=== PATIENT | female | born 1980 ===

== ENCOUNTER 2020-07-28 14:01 | Inpatient (IN) | payer MEDICARE, MEDICAID ==
[~2020-07-28] VITALS: Ht 175.3 cm; Wt 150.4 kg
[2020-07-28] MEDS ORDERED: PANTOPRAZOLE 40 MG/10 ML VIAL INJ IV STA (15:12)
[2020-07-28] MEDS ORDERED: ONDANSETRON HCL 4 MG/2 ML VIAL IV ONE (15:15)
[2020-07-28] MEDS ORDERED: MORPHINE SULFATE 4 MG/ML SYR/VIAL IV ONE (15:15)
[2020-07-28 16:42] LABS: Urine WBC None Seen /hpf (0 - 5)
[2020-07-28 16:52] LABS: Basophils # (auto) 0.1 10 ^3/uL (0-0.2); Basophils % (auto) 0.8 % (0.0-2.0); Eosinophils # (auto) 0.1 10 ^3/uL (0-0.8); Eosinophils % (auto) 0.6 % (0.0-7.0); Hematocrit 40.8 % (36.0-46.0); Hemoglobin 13.9 g/dL (12.2-16.2); Lymphocytes # (auto) 2.1 10 ^3/uL (0.4-5.4); Lymphocytes % (auto) 20.5 % (10.0-50.0); Mean Corpuscular Hemoglobin 29.2 pg (28.0-32.0); Mean Corpuscular Hgb Conc. 34.1 g/dL (32.0-36.0); Mean Corpuscular Volume 85.4 fL (80.0-100.0); Monocytes # (auto) 0.7 10 ^3/uL (0-1.3); Monocytes % (auto) 7.4 % (0.0-12.0); Neutrophils # (auto) 7.1 10 ^3/uL (1.6-8.6); Neutrophils % (auto) 70.7 % (37.0-80.0); Nucleated Red Blood Cells % 0.1 %; Red Blood Cells 4.78 10^6/uL (4.0-5.20); Red Cell Distribution Width 14.1 % (11.8-14.3); White Blood Cell 10.1 10^3/uL (4.4-10.8)
[2020-07-28 16:57] LABS: Urine Bacteria NONE SEEN /hpf (None Seen); Urine Blood Negative /uL (Negative); Urine Specific Gravity 1.004 (1.001-1.035)
[2020-07-28 17:05] LABS: Albumin 3.3 g/dL (3.4-5.0); Calcium 8.6 mg/dL (8.5-10.1)
[2020-07-28 17:30] LABS: Bilirubin, Total 0.2 mg/dL (0.2-1.0); Total Protein 6.6 g/dL (6.4-8.2)
[2020-07-28] MEDS ORDERED: ACETAMINOPHEN 325 MG TAB PO PRN (18:45)
[2020-07-28] MEDS ORDERED: NITROGLYCERIN 0.4 MG SL TAB SL PRN (18:45)
[2020-07-28] MEDS ORDERED: MORPHINE SULF INJ 2 MG/ML SYRINGE 1ML IV PRN (18:45)
[2020-07-28] MEDS ORDERED: ONDANSETRON HCL 4 MG/2 ML VIAL IV PRN (18:45)
[2020-07-28 19:50] VITALS: BP 108/67
[2020-07-28 20:20] VITALS: BP 108/67
[2020-07-28] MEDS: MORPHINE SULF INJ 2 MG/ML SYRINGE 1ML IV PRN (21:26)
[2020-07-28 22:00] VITALS: BP 108/67
[2020-07-28 22:49] VITALS: BP 108/67
[2020-07-28] MEDS ORDERED: ACET-1156 PO (22:49)
[2020-07-28] MEDS ORDERED: TOPI100T68 PO (22:49)
[2020-07-28] MEDS ORDERED: GABA300C10 PO (22:49)
[2020-07-28] MEDS ORDERED: ZONI100C43 PO (22:49)
[2020-07-28] MEDS ORDERED: NAP500T PO (22:49)
[2020-07-28] MEDS ORDERED: ASCO-22 PO (22:49)
[2020-07-28] MEDS ORDERED: DIVA500T4 PO (22:49)
[2020-07-28] MEDS ORDERED: EPIN0.1I11 IJ (22:49)
[2020-07-28] MEDS ORDERED: APIX5TAB PO (22:49)
[2020-07-28] MEDS ORDERED: SENN-177 PO (22:49)
[2020-07-28] MEDS ORDERED: OLAN1TAB19 PO (22:49)
[2020-07-28] MEDS ORDERED: DIVA250T PO (22:49)
[2020-07-29 05:00] VITALS: BP 95/61
[2020-07-29] MEDS: PANTOPRAZOLE 40 MG TAB PO SCH (08:55)
[2020-07-29] MEDS: MORPHINE SULF INJ 2 MG/ML SYRINGE 1ML IV PRN ×2 (08:56→22:22)
[2020-07-29 09:00] VITALS: BP 100/58
[2020-07-29] MEDS ORDERED: ENOXAPARIN SOD 40 MG/0.4 ML SYRINGE SC SCH (10:00)
[2020-07-29] MEDS ORDERED: SENNA 8.6 MG TAB PO PRN (12:15)
[2020-07-29 12:56] VITALS: BP 123/71
[2020-07-29] MEDS: GABAPENTIN 300 MG CAP PO SCH ×2 (13:30→22:14)
[2020-07-29 17:00] VITALS: BP 112/67
[2020-07-29] MEDS ORDERED: LORazepam 2MG/ML-1ML VIAL IV PRN (20:15)
[2020-07-29 22:00] VITALS: BP 106/72
[2020-07-29] MEDS: ZONISAMIDE 100 MG PO SCH (22:00)
[2020-07-29] MEDS: APIXABAN 5 MG TAB PO SCH (22:13)
[2020-07-29] MEDS: OLANZapine 5 MG TAB PO SCH (22:14)
[2020-07-29] MEDS: TOPIRAMATE 100 MG TAB PO SCH (22:14)
[2020-07-30 05:30] VITALS: BP 103/70
[2020-07-30] MEDS: GABAPENTIN 300 MG CAP PO SCH ×3 (06:15→22:05)
[2020-07-30] MEDS: ASCORBIC ACID 500 MG TAB PO SCH (10:09)
[2020-07-30] MEDS: PANTOPRAZOLE 40 MG TAB PO SCH (10:09)
[2020-07-30] MEDS: APIXABAN 5 MG TAB PO SCH ×2 (10:09→22:05)
[2020-07-30] MEDS: MORPHINE SULF INJ 2 MG/ML SYRINGE 1ML IV PRN ×2 (10:25→17:58)
[2020-07-30 10:27] LABS: Basophils # (auto) 0.1 10 ^3/uL (0-0.2); Basophils % (auto) 0.9 % (0.0-2.0); Eosinophils # (auto) 0.2 10 ^3/uL (0-0.8); Eosinophils % (auto) 2.4 % (0.0-7.0); Hematocrit 38.1 % (36.0-46.0); Hemoglobin 13.1 g/dL (12.2-16.2); Lymphocytes # (auto) 1.9 10 ^3/uL (0.4-5.4); Lymphocytes % (auto) 30.8 % (10.0-50.0); Mean Corpuscular Hemoglobin 29.1 pg (28.0-32.0); Mean Corpuscular Hgb Conc. 34.3 g/dL (32.0-36.0); Mean Corpuscular Volume 84.9 fL (80.0-100.0); Monocytes # (auto) 0.6 10 ^3/uL (0-1.3); Monocytes % (auto) 8.9 % (0.0-12.0); Neutrophils # (auto) 3.5 10 ^3/uL (1.6-8.6); Nucleated Red Blood Cells % 0.3 %; Red Blood Cells 4.49 10^6/uL (4.0-5.20); Red Cell Distribution Width 14.2 % (11.8-14.3); White Blood Cell 6.2 10^3/uL (4.4-10.8)
[2020-07-30 10:41] LABS: Calcium 8.4 mg/dL (8.5-10.1); Magnesium 2.3 mg/dL (1.6-2.6); Potassium 4.3 mmol/L (3.5-5.1)
[2020-07-30 20:00] VITALS: BP 108/75
[2020-07-30] MEDS: ZONISAMIDE 100 MG PO SCH (22:00)
[2020-07-30] MEDS: OLANZapine 5 MG TAB PO SCH (22:05)
[2020-07-30] MEDS: TOPIRAMATE 100 MG TAB PO SCH (22:05)
[2020-07-31 05:00] VITALS: BP 92/49
[2020-07-31] MEDS: GABAPENTIN 300 MG CAP PO SCH ×3 (06:14→21:14)
[2020-07-31] MEDS: MORPHINE SULF INJ 2 MG/ML SYRINGE 1ML IV PRN ×2 (06:50→15:29)
[2020-07-31 07:44] LABS: Basophils # (auto) 0 10 ^3/uL (0-0.2); Basophils % (auto) 0.7 % (0.0-2.0); Eosinophils # (auto) 0.2 10 ^3/uL (0-0.8); Hematocrit 37.4 % (36.0-46.0); Lymphocytes # (auto) 2.2 10 ^3/uL (0.4-5.4); Lymphocytes % (auto) 31.3 % (10.0-50.0); Mean Corpuscular Hemoglobin 29.4 pg (28.0-32.0); Mean Corpuscular Hgb Conc. 34.6 g/dL (32.0-36.0); Monocytes # (auto) 0.6 10 ^3/uL (0-1.3); Monocytes % (auto) 9.3 % (0.0-12.0); Neutrophils # (auto) 3.9 10 ^3/uL (1.6-8.6); Neutrophils % (auto) 55.7 % (37.0-80.0); Red Blood Cells 4.41 10^6/uL (4.0-5.20)
[2020-07-31 07:58] LABS: BUN/Creatinine Ratio 37.9; Calcium 8.3 mg/dL (8.5-10.1); Magnesium 2.3 mg/dL (1.6-2.6); Potassium 3.7 mmol/L (3.5-5.1)
[2020-07-31 09:00] VITALS: BP 106/74
[2020-07-31] MEDS: APIXABAN 5 MG TAB PO SCH ×2 (10:09→21:13)
[2020-07-31] MEDS: PANTOPRAZOLE 40 MG TAB PO SCH (10:09)
[2020-07-31] MEDS: ASCORBIC ACID 500 MG TAB PO SCH (10:09)
[2020-07-31] MEDS: ZONISAMIDE 100 MG PO SCH (21:14)
[2020-07-31] MEDS: OLANZapine 5 MG TAB PO SCH (21:14)
[2020-07-31] MEDS: TOPIRAMATE 100 MG TAB PO SCH (21:15)
[2020-07-31] MEDS: LORazepam 2MG/ML-1ML VIAL IV PRN (22:26)
[2020-07-31] MEDS: HYDROcodone-ACET 5/325MG TAB PO PRN (22:26)
[2020-08-01] MEDS: LORazepam 2MG/ML-1ML VIAL IV PRN ×2 (04:28→19:02)
[2020-08-01 05:00] VITALS: BP 110/64
[2020-08-01] MEDS: GABAPENTIN 300 MG CAP PO SCH ×3 (05:59→22:41)
[2020-08-01] MEDS ORDERED: cefTRIAXone 1GM/50ML D5W 50 ML IV SCH (09:00)
[2020-08-01] MEDS: ASCORBIC ACID 500 MG TAB PO SCH (11:19)
[2020-08-01] MEDS: PANTOPRAZOLE 40 MG TAB PO SCH (11:19)
[2020-08-01] MEDS: APIXABAN 5 MG TAB PO SCH ×2 (11:19→22:40)
[2020-08-01] MEDS: MORPHINE SULF INJ 2 MG/ML SYRINGE 1ML IV PRN (16:29)
[2020-08-01 22:00] VITALS: BP 107/68
[2020-08-01] MEDS: ZONISAMIDE 100 MG PO SCH (22:00)
[2020-08-01] MEDS: TOPIRAMATE 100 MG TAB PO SCH (22:41)
[2020-08-01] MEDS: OLANZapine 5 MG TAB PO SCH (22:41)
[2020-08-02] MEDS: LORazepam 2MG/ML-1ML VIAL IV PRN ×3 (01:08→20:31)
[2020-08-02 05:00] VITALS: BP 112/68
[2020-08-02] MEDS: MORPHINE SULF INJ 2 MG/ML SYRINGE 1ML IV PRN ×2 (05:07→16:09)
[2020-08-02] MEDS: GABAPENTIN 300 MG CAP PO SCH ×3 (05:08→21:33)
[2020-08-02 09:00] VITALS: BP 98/58
[2020-08-02] MEDS: PANTOPRAZOLE 40 MG TAB PO SCH (09:55)
[2020-08-02] MEDS: ASCORBIC ACID 500 MG TAB PO SCH (09:55)
[2020-08-02] MEDS: APIXABAN 5 MG TAB PO SCH ×2 (09:55→21:34)
[2020-08-02 13:00] VITALS: BP 107/67
[2020-08-02 17:00] VITALS: BP 125/68
[2020-08-02] MEDS: ZONISAMIDE 100 MG PO SCH (21:34)
[2020-08-02] MEDS: OLANZapine 5 MG TAB PO SCH (21:34)
[2020-08-02] MEDS: TOPIRAMATE 100 MG TAB PO SCH (21:34)
[2020-08-02 22:00] VITALS: BP 104/65
[2020-08-03] MEDS: LORazepam 2MG/ML-1ML VIAL IV PRN ×3 (03:42→21:58)
[2020-08-03 05:00] VITALS: BP 92/63
[2020-08-03 06:01] LABS: Basophils # (auto) 0.1 10 ^3/uL (0-0.2); Eosinophils # (auto) 0.2 10 ^3/uL (0-0.8); Hematocrit 36.1 % (36.0-46.0); Hemoglobin 12.4 g/dL (12.2-16.2); Lymphocytes # (auto) 2.3 10 ^3/uL (0.4-5.4); Lymphocytes % (auto) 28.8 % (10.0-50.0); Mean Corpuscular Hemoglobin 29.3 pg (28.0-32.0); Mean Corpuscular Hgb Conc. 34.5 g/dL (32.0-36.0); Mean Corpuscular Volume 84.9 fL (80.0-100.0); Monocytes # (auto) 0.9 10 ^3/uL (0-1.3); Monocytes % (auto) 11.5 % (0.0-12.0); Neutrophils # (auto) 4.4 10 ^3/uL (1.6-8.6); Neutrophils % (auto) 55.7 % (37.0-80.0); Nucleated Red Blood Cells % 0.1 %; Red Blood Cells 4.25 10^6/uL (4.0-5.20); Red Cell Distribution Width 14.6 % (11.8-14.3); White Blood Cell 7.8 10^3/uL (4.4-10.8)
[2020-08-03] MEDS: GABAPENTIN 300 MG CAP PO SCH ×3 (06:19→21:58)
[2020-08-03 06:23] LABS: Magnesium 2.1 mg/dL (1.6-2.6); Potassium 3.9 mmol/L (3.5-5.1)
[2020-08-03 06:25] LABS: BUN/Creatinine Ratio 24.6
[2020-08-03 08:00] VITALS: BP 100/59
[2020-08-03] MEDS: APIXABAN 5 MG TAB PO SCH ×3 (11:22→22:15)
[2020-08-03] MEDS: HYDROcodone-ACET 5/325MG TAB PO PRN ×2 (11:22→17:18)
[2020-08-03] MEDS: ASCORBIC ACID 500 MG TAB PO SCH (11:22)
[2020-08-03] MEDS: PANTOPRAZOLE 40 MG TAB PO SCH (11:22)
[2020-08-03 13:00] VITALS: BP 116/78
[2020-08-03 17:00] VITALS: BP 105/64
[2020-08-03] MEDS: OLANZapine 5 MG TAB PO SCH (21:57)
[2020-08-03] MEDS: TOPIRAMATE 100 MG TAB PO SCH (21:58)
[2020-08-03 22:00] VITALS: BP 114/54
[2020-08-03] MEDS: ZONISAMIDE 100 MG PO SCH (22:00)
[2020-08-04 05:00] VITALS: BP 114/61
[2020-08-04] MEDS: GABAPENTIN 300 MG CAP PO SCH ×3 (06:17→22:46)
[2020-08-04] MEDS: MORPHINE SULF INJ 2 MG/ML SYRINGE 1ML IV PRN ×2 (06:17→23:09)
[2020-08-04 09:00] VITALS: BP 112/55
[2020-08-04] MEDS: ASCORBIC ACID 500 MG TAB PO SCH (10:50)
[2020-08-04] MEDS: APIXABAN 5 MG TAB PO SCH ×2 (10:50→22:45)
[2020-08-04] MEDS: PANTOPRAZOLE 40 MG TAB PO SCH (10:50)
[2020-08-04 13:00] VITALS: BP 114/59
[2020-08-04 17:00] VITALS: BP 114/80
[2020-08-04] MEDS: LORazepam 2MG/ML-1ML VIAL IV PRN (17:46)
[2020-08-04 22:00] VITALS: BP 115/53
[2020-08-04] MEDS: ZONISAMIDE 100 MG PO SCH (22:00)
[2020-08-04] MEDS: OLANZapine 5 MG TAB PO SCH (22:46)
[2020-08-04] MEDS: TOPIRAMATE 100 MG TAB PO SCH (22:46)
[2020-08-05 05:00] VITALS: BP 103/59
[2020-08-05] MEDS: GABAPENTIN 300 MG CAP PO SCH ×3 (06:23→21:45)
[2020-08-05 09:00] VITALS: BP 111/59
[2020-08-05] MEDS: ASCORBIC ACID 500 MG TAB PO SCH (09:08)
[2020-08-05] MEDS: LORazepam 2MG/ML-1ML VIAL IV PRN ×2 (09:08→16:44)
[2020-08-05] MEDS: APIXABAN 5 MG TAB PO SCH ×2 (09:08→21:45)
[2020-08-05] MEDS: PANTOPRAZOLE 40 MG TAB PO SCH (09:08)
[2020-08-05] MEDS: HYDROcodone-ACET 5/325MG TAB PO PRN (09:16)
[2020-08-05 13:00] VITALS: BP 115/70
[2020-08-05 17:00] VITALS: BP 103/69
[2020-08-05] MEDS: MORPHINE SULF INJ 2 MG/ML SYRINGE 1ML IV PRN (21:25)
[2020-08-05] MEDS: TOPIRAMATE 100 MG TAB PO SCH (21:45)
[2020-08-05] MEDS: ZONISAMIDE 100 MG PO SCH (21:45)
[2020-08-05] MEDS: OLANZapine 5 MG TAB PO SCH (21:45)
[2020-08-06] MEDS: LORazepam 2MG/ML-1ML VIAL IV PRN (00:38)
[2020-08-06] MEDS: GABAPENTIN 300 MG CAP PO SCH ×3 (06:25→22:06)
[2020-08-06 06:26] VITALS: BP 111/50
[2020-08-06 09:00] VITALS: BP 136/75
[2020-08-06 13:00] VITALS: BP 118/80
[2020-08-06] MEDS: APIXABAN 5 MG TAB PO SCH ×2 (14:31→22:06)
[2020-08-06] MEDS: PANTOPRAZOLE 40 MG TAB PO SCH (14:31)
[2020-08-06] MEDS: ASCORBIC ACID 500 MG TAB PO SCH (14:31)
[2020-08-06] MEDS: HYDROcodone-ACET 5/325MG TAB PO PRN (16:38)
[2020-08-06 17:00] VITALS: BP 135/76
[2020-08-06] MEDS: MORPHINE SULF INJ 2 MG/ML SYRINGE 1ML IV PRN (18:45)
[2020-08-06 22:00] VITALS: BP 115/69
[2020-08-06] MEDS: ZONISAMIDE 100 MG PO SCH (22:00)
[2020-08-06] MEDS: TOPIRAMATE 100 MG TAB PO SCH (22:06)
[2020-08-06] MEDS: OLANZapine 5 MG TAB PO SCH (22:07)
[2020-08-07 05:00] VITALS: BP 110/69
[2020-08-07] MEDS: GABAPENTIN 300 MG CAP PO SCH ×5 (06:07→23:20)
[2020-08-07 09:00] VITALS: BP 119/65
[2020-08-07] MEDS: ASCORBIC ACID 500 MG TAB PO SCH (09:00)
[2020-08-07] MEDS: PANTOPRAZOLE 40 MG TAB PO SCH (09:00)
[2020-08-07] MEDS: APIXABAN 5 MG TAB PO SCH ×4 (09:00→23:20)
[2020-08-07 13:00] VITALS: BP 110/66
[2020-08-07] MEDS: ACETAMINOPHEN 325 MG TAB PO PRN (16:22)
[2020-08-07 17:21] LABS: Basophils # (auto) 0.1 10 ^3/uL (0-0.2); Basophils % (auto) 0.7 % (0.0-2.0); Eosinophils # (auto) 0.2 10 ^3/uL (0-0.8); Eosinophils % (auto) 2.9 % (0.0-7.0); Hemoglobin 12.5 g/dL (12.2-16.2); Lymphocytes # (auto) 1.7 10 ^3/uL (0.4-5.4); Lymphocytes % (auto) 20.9 % (10.0-50.0); Mean Corpuscular Hemoglobin 29.5 pg (28.0-32.0); Mean Corpuscular Hgb Conc. 34.6 g/dL (32.0-36.0); Mean Corpuscular Volume 85.2 fL (80.0-100.0); Monocytes # (auto) 0.6 10 ^3/uL (0-1.3); Monocytes % (auto) 7.9 % (0.0-12.0); Neutrophils # (auto) 5.4 10 ^3/uL (1.6-8.6); Neutrophils % (auto) 67.6 % (37.0-80.0); Nucleated Red Blood Cells % 0.1 %; Red Blood Cells 4.23 10^6/uL (4.0-5.20); Red Cell Distribution Width 14.3 % (11.8-14.3)
[2020-08-07 17:41] LABS: Potassium 4.2 mmol/L (3.5-5.1)
[2020-08-07 17:46] LABS: Albumin 2.5 g/dL (3.4-5.0); Calcium 7.8 mg/dL (8.5-10.1)
[2020-08-07 17:48] LABS: Bilirubin, Total 0.2 mg/dL (0.2-1.0)
[2020-08-07 20:11] LABS: Alcohol, Urine < 3.0 mg/dL (0-10); Amphetamine Screen, Urine NEGATIVE (NEGATIVE); Barbiturate Scree,Urine NEGATIVE (NEGATIVE); Benzodiazephine Screen, Urine NEGATIVE (NEGATIVE); Cannabinoid Screen, Urine NEGATIVE (NEGATIVE); Cocaine Screen, Urine NEGATIVE (NEGATIVE); Opiate Scree,Urine NEGATIVE (NEGATIVE); Phencyclidine Screen, Urine NEGATIVE (NEGATIVE)
[2020-08-07 22:00] VITALS: BP 113/69
[2020-08-07] MEDS: ZONISAMIDE 100 MG PO SCH (22:00)
[2020-08-07] MEDS: OLANZapine 5 MG TAB PO SCH ×3 (22:00→23:20)
[2020-08-07] MEDS: TOPIRAMATE 100 MG TAB PO SCH ×3 (22:00→23:20)
[2020-08-07] MEDS: LORazepam 2MG/ML-1ML VIAL IV PRN (23:42)
[2020-08-08 05:00] VITALS: BP 98/60
[2020-08-08] MEDS: GABAPENTIN 300 MG CAP PO SCH ×2 (06:24→23:00)
[2020-08-08 08:30] VITALS: BP 127/70
[2020-08-08] MEDS: PANTOPRAZOLE 40 MG TAB PO SCH (09:46)
[2020-08-08] MEDS: ASCORBIC ACID 500 MG TAB PO SCH (09:46)
[2020-08-08] MEDS: APIXABAN 5 MG TAB PO SCH ×2 (10:00→23:01)
[2020-08-08 12:10] LABS: Basophils # (auto) 0.1 10 ^3/uL (0-0.2); Basophils % (auto) 0.9 % (0.0-2.0); Eosinophils # (auto) 0.2 10 ^3/uL (0-0.8); Eosinophils % (auto) 2.5 % (0.0-7.0); Hematocrit 35.9 % (36.0-46.0); Hemoglobin 12.2 g/dL (12.2-16.2); Lymphocytes % (auto) 25.9 % (10.0-50.0); Mean Corpuscular Hemoglobin 29.1 pg (28.0-32.0); Mean Corpuscular Volume 85.5 fL (80.0-100.0); Monocytes # (auto) 0.8 10 ^3/uL (0-1.3); Monocytes % (auto) 10.5 % (0.0-12.0); Neutrophils # (auto) 4.6 10 ^3/uL (1.6-8.6); Neutrophils % (auto) 60.2 % (37.0-80.0); Nucleated Red Blood Cells % 0.1 %; Red Cell Distribution Width 14.6 % (11.8-14.3); White Blood Cell 7.6 10^3/uL (4.4-10.8)
[2020-08-08 12:20] LABS: BUN/Creatinine Ratio 26.2; Calcium 7.9 mg/dL (8.5-10.1); Magnesium 2.2 mg/dL (1.6-2.6); Potassium 4.2 mmol/L (3.5-5.1)
[2020-08-08 12:30] VITALS: BP 116/72
[2020-08-08 16:54] VITALS: BP 124/70
[2020-08-08 21:49] VITALS: BP 115/68
[2020-08-08] MEDS: ZONISAMIDE 100 MG PO SCH (22:00)
[2020-08-08] MEDS: OLANZapine 5 MG TAB PO SCH (23:00)
[2020-08-08] MEDS: TOPIRAMATE 100 MG TAB PO SCH (23:01)
[2020-08-08] MEDS: LORazepam 2MG/ML-1ML VIAL IV PRN (23:08)
[2020-08-09 05:00] VITALS: BP 112/60
[2020-08-09] MEDS: GABAPENTIN 300 MG CAP PO SCH ×3 (06:38→21:59)
[2020-08-09 07:30] LABS: Basophils # (auto) 0.1 10 ^3/uL (0-0.2); Basophils % (auto) 0.9 % (0.0-2.0); Eosinophils # (auto) 0.2 10 ^3/uL (0-0.8); Eosinophils % (auto) 2.4 % (0.0-7.0); Hematocrit 36.6 % (36.0-46.0); Hemoglobin 12.4 g/dL (12.2-16.2); Lymphocytes # (auto) 2.5 10 ^3/uL (0.4-5.4); Lymphocytes % (auto) 29.7 % (10.0-50.0); Mean Corpuscular Hgb Conc. 33.9 g/dL (32.0-36.0); Mean Corpuscular Volume 85.7 fL (80.0-100.0); Monocytes # (auto) 0.8 10 ^3/uL (0-1.3); Monocytes % (auto) 9.9 % (0.0-12.0); Neutrophils # (auto) 4.8 10 ^3/uL (1.6-8.6); Neutrophils % (auto) 57.1 % (37.0-80.0); Red Blood Cells 4.27 10^6/uL (4.0-5.20); Red Cell Distribution Width 14.2 % (11.8-14.3); White Blood Cell 8.3 10^3/uL (4.4-10.8)
[2020-08-09 07:55] LABS: Calcium 7.9 mg/dL (8.5-10.1); Magnesium 2.3 mg/dL (1.6-2.6); Potassium 4.2 mmol/L (3.5-5.1)
[2020-08-09 09:00] VITALS: BP 111/58
[2020-08-09] MEDS: ASCORBIC ACID 500 MG TAB PO SCH (09:41)
[2020-08-09] MEDS: PANTOPRAZOLE 40 MG TAB PO SCH (09:41)
[2020-08-09] MEDS: APIXABAN 5 MG TAB PO SCH ×2 (09:41→21:59)
[2020-08-09 13:00] VITALS: BP 121/66
[2020-08-09 17:00] VITALS: BP 135/84
[2020-08-09 21:52] VITALS: BP 109/71
[2020-08-09] MEDS: ZONISAMIDE 100 MG PO SCH (21:58)
[2020-08-09] MEDS: ZOLPIDEM TARTRATE 5 MG TAB PO PRN (21:59)
[2020-08-09] MEDS: OLANZapine 5 MG TAB PO SCH (21:59)
[2020-08-09] MEDS: TOPIRAMATE 100 MG TAB PO SCH (21:59)
[2020-08-10 04:33] VITALS: BP 97/60
[2020-08-10] MEDS: GABAPENTIN 300 MG CAP PO SCH ×3 (06:09→23:03)
[2020-08-10 08:00] VITALS: BP 100/57
[2020-08-10] MEDS: PANTOPRAZOLE 40 MG TAB PO SCH (10:00)
[2020-08-10] MEDS: ASCORBIC ACID 500 MG TAB PO SCH (10:00)
[2020-08-10] MEDS: APIXABAN 5 MG TAB PO SCH ×2 (10:00→23:03)
[2020-08-10 13:00] VITALS: BP 112/65
[2020-08-10 17:00] VITALS: BP 123/72
[2020-08-10] MEDS: ACETAMINOPHEN 325 MG TAB PO PRN (17:51)
[2020-08-10] MEDS: ZONISAMIDE 100 MG PO SCH (22:00)
[2020-08-10 22:32] VITALS: BP 108/63
[2020-08-10] MEDS: ZOLPIDEM TARTRATE 5 MG TAB PO PRN (23:03)
[2020-08-10] MEDS: TOPIRAMATE 100 MG TAB PO SCH (23:04)
[2020-08-10] MEDS: LORazepam 2MG/ML-1ML VIAL IV PRN (23:04)
[2020-08-10] MEDS: OLANZapine 5 MG TAB PO SCH (23:04)
[2020-08-11 05:00] VITALS: BP 102/55
[2020-08-11] MEDS: GABAPENTIN 300 MG CAP PO SCH ×2 (06:33→14:27)
[2020-08-11 09:00] VITALS: BP 95/56
[2020-08-11] MEDS: PANTOPRAZOLE 40 MG TAB PO SCH (09:19)
[2020-08-11] MEDS: ASCORBIC ACID 500 MG TAB PO SCH (09:19)
[2020-08-11] MEDS: APIXABAN 5 MG TAB PO SCH (09:19)
[2020-08-11] MEDS: ACETAMINOPHEN 325 MG TAB PO PRN (15:00)
[2020-08-11 21:29] VITALS: BP 121/71
[2020-08-11] MEDS: ZONISAMIDE 100 MG PO SCH (22:00)
[2020-08-12] MEDS: TOPIRAMATE 100 MG TAB PO SCH ×2 (00:02→22:07)
[2020-08-12] MEDS: GABAPENTIN 300 MG CAP PO SCH ×4 (00:02→22:07)
[2020-08-12] MEDS: APIXABAN 5 MG TAB PO SCH ×3 (00:02→22:07)
[2020-08-12] MEDS: OLANZapine 5 MG TAB PO SCH ×2 (00:03→22:08)
[2020-08-12] MEDS: ZOLPIDEM TARTRATE 5 MG TAB PO PRN ×2 (00:03→22:08)
[2020-08-12] MEDS: LORazepam 2MG/ML-1ML VIAL IV PRN ×2 (00:30→18:08)
[2020-08-12 05:43] VITALS: BP 101/54
[2020-08-12 09:00] VITALS: BP 112/67
[2020-08-12] MEDS: PANTOPRAZOLE 40 MG TAB PO SCH (10:39)
[2020-08-12] MEDS: ASCORBIC ACID 500 MG TAB PO SCH (10:39)
[2020-08-12 13:00] VITALS: BP 103/59
[2020-08-12 17:00] VITALS: BP 128/68
[2020-08-12 22:00] VITALS: BP 104/53
[2020-08-12] MEDS: ZONISAMIDE 100 MG PO SCH (22:00)
[2020-08-13 05:00] VITALS: BP 95/51
[2020-08-13] MEDS: GABAPENTIN 300 MG CAP PO SCH ×3 (06:23→20:35)
[2020-08-13 07:42] LABS: Basophils # (auto) 0.1 10 ^3/uL (0-0.2); Basophils % (auto) 0.9 % (0.0-2.0); Eosinophils # (auto) 0.2 10 ^3/uL (0-0.8); Eosinophils % (auto) 2.6 % (0.0-7.0); Hematocrit 36.9 % (36.0-46.0); Hemoglobin 12.6 g/dL (12.2-16.2); Lymphocytes # (auto) 2.9 10 ^3/uL (0.4-5.4); Lymphocytes % (auto) 31.5 % (10.0-50.0); Mean Corpuscular Hemoglobin 29.1 pg (28.0-32.0); Mean Corpuscular Hgb Conc. 34.1 g/dL (32.0-36.0); Mean Corpuscular Volume 85.4 fL (80.0-100.0); Monocytes % (auto) 11.4 % (0.0-12.0); Neutrophils # (auto) 4.9 10 ^3/uL (1.6-8.6); Neutrophils % (auto) 53.6 % (37.0-80.0); Red Blood Cells 4.32 10^6/uL (4.0-5.20); Red Cell Distribution Width 14.6 % (11.8-14.3); White Blood Cell 9.2 10^3/uL (4.4-10.8)
[2020-08-13 07:56] LABS: Potassium 4.1 mmol/L (3.5-5.1)
[2020-08-13 08:00] LABS: BUN/Creatinine Ratio 36.5; Calcium 8.1 mg/dL (8.5-10.1); Magnesium 2.2 mg/dL (1.6-2.6)
[2020-08-13 09:00] VITALS: BP 129/85
[2020-08-13] MEDS: APIXABAN 5 MG TAB PO SCH ×2 (09:46→20:35)
[2020-08-13] MEDS: PANTOPRAZOLE 40 MG TAB PO SCH (09:46)
[2020-08-13] MEDS: ASCORBIC ACID 500 MG TAB PO SCH (09:46)
[2020-08-13] MEDS: ACETAMINOPHEN 325 MG TAB PO PRN (09:48)
[2020-08-13] MEDS: LORazepam 2MG/ML-1ML VIAL IV PRN (12:32)
[2020-08-13 13:00] VITALS: BP 117/67
[2020-08-13 17:00] VITALS: BP 127/87
[2020-08-13] MEDS: ZONISAMIDE 100 MG PO SCH (20:34)
[2020-08-13] MEDS: TOPIRAMATE 100 MG TAB PO SCH (20:36)
[2020-08-13] MEDS: OLANZapine 5 MG TAB PO SCH (20:37)
[2020-08-13] MEDS: ZOLPIDEM TARTRATE 5 MG TAB PO PRN (22:43)
[2020-08-13] MEDS ORDERED: diphenhdrAMINE HCL 50 MG/1 ML VL IV ONE (23:30)
[2020-08-14 05:40] VITALS: BP 94/57
[2020-08-14] MEDS: GABAPENTIN 300 MG CAP PO SCH ×3 (06:09→20:53)
[2020-08-14 09:00] VITALS: BP 98/67
[2020-08-14] MEDS: APIXABAN 5 MG TAB PO SCH ×2 (09:15→20:53)
[2020-08-14] MEDS: PANTOPRAZOLE 40 MG TAB PO SCH (09:15)
[2020-08-14] MEDS: ASCORBIC ACID 500 MG TAB PO SCH (09:16)
[2020-08-14 13:00] VITALS: BP 131/82
[2020-08-14] MEDS: LORazepam 0.5 MG TAB PO PRN (13:00)
[2020-08-14 17:00] VITALS: BP 143/80
[2020-08-14 20:33] VITALS: BP 131/86
[2020-08-14] MEDS: ZONISAMIDE 100 MG PO SCH (20:52)
[2020-08-14] MEDS: OLANZapine 5 MG TAB PO SCH (20:54)
[2020-08-14] MEDS: TOPIRAMATE 100 MG TAB PO SCH (20:54)
[2020-08-14] MEDS: ZOLPIDEM TARTRATE 5 MG TAB PO PRN (22:44)
[2020-08-15 05:00] VITALS: BP 88/61
[2020-08-15] MEDS: GABAPENTIN 300 MG CAP PO SCH ×3 (06:02→21:11)
[2020-08-15 09:44] VITALS: BP 126/69
[2020-08-15] MEDS: ASCORBIC ACID 500 MG TAB PO SCH (10:00)
[2020-08-15] MEDS: PANTOPRAZOLE 40 MG TAB PO SCH (10:00)
[2020-08-15] MEDS: APIXABAN 5 MG TAB PO SCH ×2 (10:00→21:11)
[2020-08-15 14:35] VITALS: BP 136/87
[2020-08-15 16:31] VITALS: BP 137/89
[2020-08-15] MEDS: TOPIRAMATE 100 MG TAB PO SCH (21:11)
[2020-08-15] MEDS: OLANZapine 5 MG TAB PO SCH (21:11)
[2020-08-15] MEDS: ZONISAMIDE 100 MG PO SCH (21:12)
[2020-08-15 22:00] VITALS: BP 103/53
[2020-08-16] MEDS: ZOLPIDEM TARTRATE 5 MG TAB PO PRN (00:08)
[2020-08-16] MEDS: LORazepam 0.5 MG TAB PO PRN ×2 (01:01→17:17)
[2020-08-16 05:00] VITALS: BP 90/46
[2020-08-16] MEDS: GABAPENTIN 300 MG CAP PO SCH ×3 (06:24→21:33)
[2020-08-16] MEDS: PANTOPRAZOLE 40 MG TAB PO SCH (10:54)
[2020-08-16] MEDS: ASCORBIC ACID 500 MG TAB PO SCH (10:54)
[2020-08-16] MEDS: APIXABAN 5 MG TAB PO SCH ×2 (10:54→21:33)
[2020-08-16 20:44] VITALS: BP 127/66
[2020-08-16] MEDS: OLANZapine 5 MG TAB PO SCH (21:33)
[2020-08-16] MEDS: TOPIRAMATE 100 MG TAB PO SCH (21:33)
[2020-08-16] MEDS: ZONISAMIDE 100 MG PO SCH (21:33)
[2020-08-17 05:02] VITALS: BP 96/48
[2020-08-17] MEDS: GABAPENTIN 300 MG CAP PO SCH ×3 (06:02→21:13)
[2020-08-17 08:58] VITALS: BP 111/58
[2020-08-17] MEDS: PANTOPRAZOLE 40 MG TAB PO SCH (09:41)
[2020-08-17] MEDS: ASCORBIC ACID 500 MG TAB PO SCH (09:41)
[2020-08-17] MEDS: APIXABAN 5 MG TAB PO SCH ×2 (09:41→21:13)
[2020-08-17] MEDS ORDERED: LACTULOSE 20Gm/30ML SOLN PO PRN ×2 (12:15)
[2020-08-17] MEDS ORDERED: SENNA 8.6 MG TAB PO PRN (12:15)
[2020-08-17 13:00] VITALS: BP 117/70
[2020-08-17] MEDS: SOD CHL 0.45% 1,000 ML IV SCH ×2 (14:00→22:15)
[2020-08-17 16:31] VITALS: BP 133/78
[2020-08-17] MEDS: ZONISAMIDE 100 MG PO SCH (21:12)
[2020-08-17] MEDS: OLANZapine 5 MG TAB PO SCH (21:13)
[2020-08-17] MEDS: DOCUSATE SOD 100 MG CAP PO SCH ×2 (21:13→21:20)
[2020-08-17] MEDS: TOPIRAMATE 100 MG TAB PO SCH (21:14)
[2020-08-17 22:00] VITALS: BP 125/77
[2020-08-18 05:00] VITALS: BP 104/51
[2020-08-18] MEDS: GABAPENTIN 300 MG CAP PO SCH ×3 (06:05→21:09)
[2020-08-18] MEDS: SOD CHL 0.45% 1,000 ML IV SCH ×2 (08:15→18:04)
[2020-08-18 09:00] VITALS: BP 118/75
[2020-08-18] MEDS: DOCUSATE SOD 100 MG CAP PO SCH ×2 (10:00→21:21)
[2020-08-18] MEDS: APIXABAN 5 MG TAB PO SCH ×2 (10:03→21:09)
[2020-08-18] MEDS: ASCORBIC ACID 500 MG TAB PO SCH (10:03)
[2020-08-18] MEDS: PANTOPRAZOLE 40 MG TAB PO SCH (10:03)
[2020-08-18 12:50] VITALS: BP 129/88
[2020-08-18 16:36] VITALS: BP 104/64
[2020-08-18] MEDS: OLANZapine 5 MG TAB PO SCH (21:08)
[2020-08-18] MEDS: TOPIRAMATE 100 MG TAB PO SCH (21:09)
[2020-08-18] MEDS: ZONISAMIDE 100 MG PO SCH (21:21)
[2020-08-18 22:00] VITALS: BP 141/72
[2020-08-19] MEDS: SOD CHL 0.45% 1,000 ML IV SCH ×2 (04:15→14:15)
[2020-08-19 05:00] VITALS: BP 103/58
[2020-08-19] MEDS: GABAPENTIN 300 MG CAP PO SCH ×3 (06:38→21:49)
[2020-08-19 09:00] VITALS: BP 122/76
[2020-08-19] MEDS: DOCUSATE SOD 100 MG CAP PO SCH ×2 (10:00→21:48)
[2020-08-19] MEDS: APIXABAN 5 MG TAB PO SCH ×2 (10:23→21:49)
[2020-08-19] MEDS: PANTOPRAZOLE 40 MG TAB PO SCH (10:23)
[2020-08-19] MEDS: ASCORBIC ACID 500 MG TAB PO SCH (10:23)
[2020-08-19 13:00] VITALS: BP 131/82
[2020-08-19 17:00] VITALS: BP 111/66
[2020-08-19 20:51] VITALS: BP 123/83
[2020-08-19] MEDS: ZONISAMIDE 100 MG PO SCH (21:48)
[2020-08-19] MEDS: TOPIRAMATE 100 MG TAB PO SCH (21:49)
[2020-08-19] MEDS: OLANZapine 5 MG TAB PO SCH (21:50)
[2020-08-19] MEDS: ZOLPIDEM TARTRATE 5 MG TAB PO PRN (21:50)
[2020-08-20] MEDS: SOD CHL 0.45% 1,000 ML IV SCH ×3 (00:15→20:15)
[2020-08-20 05:15] VITALS: BP 90/43
[2020-08-20] MEDS: GABAPENTIN 300 MG CAP PO SCH ×3 (06:25→22:00)
[2020-08-20] MEDS: DOCUSATE SOD 100 MG CAP PO SCH ×2 (08:57→22:00)
[2020-08-20] MEDS: PANTOPRAZOLE 40 MG TAB PO SCH (08:58)
[2020-08-20] MEDS: APIXABAN 5 MG TAB PO SCH ×2 (08:58→22:00)
[2020-08-20] MEDS: ASCORBIC ACID 500 MG TAB PO SCH (08:59)
[2020-08-20 21:03] VITALS: BP 116/64
[2020-08-20] MEDS: ONDANSETRON ODT 4 MG TAB PO PRN (21:40)
[2020-08-20] MEDS: ZONISAMIDE 100 MG PO SCH (22:00)
[2020-08-20] MEDS: OLANZapine 5 MG TAB PO SCH (22:00)
[2020-08-20] MEDS: TOPIRAMATE 100 MG TAB PO SCH (23:17)
[2020-08-20] MEDS: LORazepam 0.5 MG TAB PO PRN (23:18)
[2020-08-20] MEDS: ACETAMINOPHEN 325 MG TAB PO PRN (23:18)
[2020-08-21 05:06] VITALS: BP 96/52
[2020-08-21] MEDS: SOD CHL 0.45% 1,000 ML IV SCH ×2 (05:36→16:15)
[2020-08-21] MEDS: GABAPENTIN 300 MG CAP PO SCH ×3 (06:15→21:57)
[2020-08-21 09:00] VITALS: BP 116/64
[2020-08-21] MEDS: ONDANSETRON ODT 4 MG TAB PO PRN (10:11)
[2020-08-21] MEDS: APIXABAN 5 MG TAB PO SCH ×2 (11:09→21:57)
[2020-08-21] MEDS: DOCUSATE SOD 100 MG CAP PO SCH ×2 (11:09→21:57)
[2020-08-21] MEDS: ASCORBIC ACID 500 MG TAB PO SCH (11:13)
[2020-08-21] MEDS: PANTOPRAZOLE 40 MG TAB PO SCH (11:13)
[2020-08-21 13:00] VITALS: BP 109/54
[2020-08-21 17:00] VITALS: BP 103/56
[2020-08-21] MEDS ORDERED: LORazepam 2MG/ML-1ML VIAL IV PRN (17:45)
[2020-08-21] MEDS: ZONISAMIDE 100 MG PO SCH (21:51)
[2020-08-21] MEDS: OLANZapine 5 MG TAB PO SCH (21:57)
[2020-08-21] MEDS: TOPIRAMATE 100 MG TAB PO SCH (21:57)
[2020-08-21 22:00] VITALS: BP 104/63
[2020-08-21] MEDS: LORazepam 0.5 MG TAB PO PRN (22:17)
[2020-08-21] MEDS: ZOLPIDEM TARTRATE 5 MG TAB PO PRN (22:49)
[2020-08-21] MEDS ORDERED: LORazepam 0.5 MG TAB PO ONE (23:45)
[2020-08-22] MEDS ORDERED: diphenhdrAMINE HCL 50 MG/1 ML VL IM ONE (00:15)
[2020-08-22] MEDS ORDERED: LORazepam 2MG/ML-1ML VIAL IM ONE (00:15)
[2020-08-22] MEDS: SOD CHL 0.45% 1,000 ML IV SCH ×3 (02:15→22:15)
[2020-08-22 04:52] VITALS: BP 102/60
[2020-08-22] MEDS: GABAPENTIN 300 MG CAP PO SCH ×3 (06:00→21:34)
[2020-08-22] MEDS: DOCUSATE SOD 100 MG CAP PO SCH ×2 (10:59→21:33)
[2020-08-22] MEDS: APIXABAN 5 MG TAB PO SCH ×2 (11:00→21:34)
[2020-08-22] MEDS: ASCORBIC ACID 500 MG TAB PO SCH (11:01)
[2020-08-22] MEDS: PANTOPRAZOLE 40 MG TAB PO SCH (11:01)
[2020-08-22 14:24] LABS: Basophils # (auto) 0.1 10 ^3/uL (0-0.2); Basophils % (auto) 1.3 % (0.0-2.0); Eosinophils # (auto) 0.1 10 ^3/uL (0-0.8); Eosinophils % (auto) 1.9 % (0.0-7.0); Hematocrit 36.6 % (36.0-46.0); Hemoglobin 12.6 g/dL (12.2-16.2); Lymphocytes # (auto) 1.8 10 ^3/uL (0.4-5.4); Lymphocytes % (auto) 23.2 % (10.0-50.0); Mean Corpuscular Hemoglobin 29.6 pg (28.0-32.0); Mean Corpuscular Hgb Conc. 34.6 g/dL (32.0-36.0); Mean Corpuscular Volume 85.5 fL (80.0-100.0); Monocytes # (auto) 0.7 10 ^3/uL (0-1.3); Monocytes % (auto) 8.9 % (0.0-12.0); Neutrophils % (auto) 64.7 % (37.0-80.0); Red Blood Cells 4.28 10^6/uL (4.0-5.20); Red Cell Distribution Width 14.2 % (11.8-14.3); White Blood Cell 7.7 10^3/uL (4.4-10.8)
[2020-08-22 14:51] LABS: Calcium 7.9 mg/dL (8.5-10.1)
[2020-08-22 17:00] VITALS: BP 101/49
[2020-08-22] MEDS: LORazepam 0.5 MG TAB PO PRN (17:00)
[2020-08-22 20:00] VITALS: BP 109/75
[2020-08-22] MEDS: TOPIRAMATE 100 MG TAB PO SCH (21:34)
[2020-08-22] MEDS: OLANZapine 5 MG TAB PO SCH (21:34)
[2020-08-22] MEDS: ZONISAMIDE 100 MG PO SCH (21:43)
[2020-08-22 22:00] VITALS: BP 109/75
[2020-08-23] MEDS: ZOLPIDEM TARTRATE 5 MG TAB PO PRN (00:23)
[2020-08-23 04:53] VITALS: BP 115/80
[2020-08-23] MEDS: GABAPENTIN 300 MG CAP PO SCH ×3 (06:10→22:00)
[2020-08-23] MEDS: SOD CHL 0.45% 1,000 ML IV SCH ×2 (08:15→17:45)
[2020-08-23 09:00] VITALS: BP 109/70
[2020-08-23] MEDS: DOCUSATE SOD 100 MG CAP PO SCH ×2 (11:14→22:00)
[2020-08-23] MEDS: PANTOPRAZOLE 40 MG TAB PO SCH (11:14)
[2020-08-23] MEDS: ASCORBIC ACID 500 MG TAB PO SCH (11:14)
[2020-08-23] MEDS: APIXABAN 5 MG TAB PO SCH ×2 (11:14→22:00)
[2020-08-23 13:00] VITALS: BP 131/76
[2020-08-23 17:00] VITALS: BP 121/71
[2020-08-23 20:00] VITALS: BP 125/82
[2020-08-23 22:00] VITALS: BP 120/65
[2020-08-23] MEDS: ZONISAMIDE 100 MG PO SCH (22:00)
[2020-08-23] MEDS: TOPIRAMATE 100 MG TAB PO SCH (22:00)
[2020-08-23] MEDS ORDERED: THROAT LOZENGES(CEPASTAT) MT PRN (22:00)
[2020-08-23] MEDS: OLANZapine 5 MG TAB PO SCH (22:00)
[2020-08-24] MEDS: SOD CHL 0.45% 1,000 ML IV SCH ×2 (04:15→14:11)
[2020-08-24 05:00] VITALS: BP 110/59
[2020-08-24] MEDS: GABAPENTIN 300 MG CAP PO SCH ×3 (05:43→23:07)
[2020-08-24] MEDS: DOCUSATE SOD 100 MG CAP PO SCH ×2 (09:56→23:07)
[2020-08-24] MEDS: ASCORBIC ACID 500 MG TAB PO SCH (09:57)
[2020-08-24] MEDS: APIXABAN 5 MG TAB PO SCH ×2 (09:57→23:07)
[2020-08-24] MEDS: PANTOPRAZOLE 40 MG TAB PO SCH (09:57)
[2020-08-24 13:00] VITALS: BP 125/75
[2020-08-24 17:47] VITALS: BP 128/76
[2020-08-24 21:09] VITALS: BP 106/60
[2020-08-24] MEDS: ZONISAMIDE 100 MG PO SCH (22:00)
[2020-08-24] MEDS: OLANZapine 5 MG TAB PO SCH (23:08)
[2020-08-24] MEDS: TOPIRAMATE 100 MG TAB PO SCH (23:08)
[2020-08-25] MEDS: SOD CHL 0.45% 1,000 ML IV SCH ×3 (00:15→20:15)
[2020-08-25 05:12] VITALS: BP 101/68
[2020-08-25] MEDS: GABAPENTIN 300 MG CAP PO SCH ×3 (06:03→23:32)
[2020-08-25 09:00] VITALS: BP 100/54
[2020-08-25] MEDS: ACETAMINOPHEN 325 MG TAB PO PRN ×2 (10:14→23:33)
[2020-08-25] MEDS: APIXABAN 5 MG TAB PO SCH ×2 (10:30→23:31)
[2020-08-25] MEDS: DOCUSATE SOD 100 MG CAP PO SCH ×2 (10:30→23:31)
[2020-08-25] MEDS: PANTOPRAZOLE 40 MG TAB PO SCH (10:30)
[2020-08-25] MEDS: ASCORBIC ACID 500 MG TAB PO SCH (10:30)
[2020-08-25 13:00] VITALS: BP 116/71
[2020-08-25 17:00] VITALS: BP 130/73
[2020-08-25] MEDS: ZONISAMIDE 100 MG PO SCH (22:00)
[2020-08-25 22:05] VITALS: BP 132/84
[2020-08-25] MEDS: TOPIRAMATE 100 MG TAB PO SCH (23:32)
[2020-08-25] MEDS: OLANZapine 5 MG TAB PO SCH (23:32)
[2020-08-26] MEDS: LORazepam 0.5 MG TAB PO PRN (01:57)
[2020-08-26 05:23] VITALS: BP 112/54
[2020-08-26] MEDS: GABAPENTIN 300 MG CAP PO SCH ×3 (06:08→22:37)
[2020-08-26] MEDS: SOD CHL 0.45% 1,000 ML IV SCH ×2 (06:08→16:15)
[2020-08-26] MEDS: DOCUSATE SOD 100 MG CAP PO SCH ×2 (12:25→22:37)
[2020-08-26] MEDS: APIXABAN 5 MG TAB PO SCH ×2 (12:25→22:37)
[2020-08-26] MEDS: ASCORBIC ACID 500 MG TAB PO SCH (12:26)
[2020-08-26] MEDS: PANTOPRAZOLE 40 MG TAB PO SCH (12:26)
[2020-08-26 13:00] VITALS: BP 121/70
[2020-08-26 22:00] VITALS: BP 103/53
[2020-08-26] MEDS: ZONISAMIDE 100 MG PO SCH (22:00)
[2020-08-26] MEDS: TOPIRAMATE 100 MG TAB PO SCH (22:38)
[2020-08-26] MEDS: OLANZapine 5 MG TAB PO SCH (22:38)
[2020-08-26] MEDS: ACETAMINOPHEN 325 MG TAB PO PRN (23:18)
[2020-08-27] MEDS: ZOLPIDEM TARTRATE 5 MG TAB PO PRN ×2 (00:41→22:20)
[2020-08-27] MEDS: SOD CHL 0.45% 1,000 ML IV SCH ×3 (02:15→22:15)
[2020-08-27 05:00] VITALS: BP 104/66
[2020-08-27] MEDS: GABAPENTIN 300 MG CAP PO SCH ×3 (06:40→22:19)
[2020-08-27 09:00] VITALS: BP 98/53
[2020-08-27] MEDS: DOCUSATE SOD 100 MG CAP PO SCH ×2 (09:43→22:00)
[2020-08-27] MEDS: ASCORBIC ACID 500 MG TAB PO SCH (09:44)
[2020-08-27] MEDS: APIXABAN 5 MG TAB PO SCH ×2 (09:44→22:19)
[2020-08-27] MEDS: PANTOPRAZOLE 40 MG TAB PO SCH (09:44)
[2020-08-27 13:00] VITALS: BP 101/57
[2020-08-27 17:00] VITALS: BP 107/73
[2020-08-27] MEDS: LORazepam 0.5 MG TAB PO PRN (18:49)
[2020-08-27 22:00] VITALS: BP 109/70
[2020-08-27] MEDS: ZONISAMIDE 100 MG PO SCH (22:00)
[2020-08-27] MEDS: TOPIRAMATE 100 MG TAB PO SCH (22:19)
[2020-08-27] MEDS: OLANZapine 5 MG TAB PO SCH (22:19)
[2020-08-27] MEDS ORDERED: diphenhdrAMINE HCL 50 MG/1 ML VL IV ONE (23:15)
[2020-08-27] MEDS ORDERED: diphenhdrAMINE HCL 50 MG/1 ML VL ONE (23:25)
[2020-08-27] MEDS ORDERED: diphenhdrAMINE HCL 50 MG/1 ML VL IM ONE ×2 (23:30)
[2020-08-28 05:00] VITALS: BP 111/65
[2020-08-28] MEDS: GABAPENTIN 300 MG CAP PO SCH ×2 (06:35→16:14)
[2020-08-28] MEDS: SOD CHL 0.45% 1,000 ML IV SCH ×2 (08:15→18:15)
[2020-08-28] MEDS: DOCUSATE SOD 100 MG CAP PO SCH (10:00)
[2020-08-28 10:57] VITALS: BP 125/72
[2020-08-28] MEDS: ASCORBIC ACID 500 MG TAB PO SCH (11:09)
[2020-08-28] MEDS: APIXABAN 5 MG TAB PO SCH (11:09)
[2020-08-28 16:50] VITALS: BP 124/74
[2020-08-28 20:30] VITALS: BP 125/91
== END 2020-08-28 21:00 | DRG 392 ==
LOC: ER 14:01 → EDBD 14:01 → TELE-CENTR 18:44 → ER 20:17 → TELE-EAST 07-30 02:35 → EAST 07-30 23:19
PROVIDERS: ADMIT Internal Medicine; ATTEND Internal Medicine
DX: R10.9 Unspecified abdominal pain (principal); R45.851 Suicidal ideations; Z68.42 Body mass index [BMI] 45.0-49.9, adult; G81.91 Hemiplegia, unspecified affecting right dominant side; R20.0 Anesthesia of skin; G93.0 Cerebral cysts; F31.9 Bipolar disorder, unspecified; G40.409 Other generalized epilepsy and epileptic syndromes, not intractable, without status epilepticus; S00.81XA Abrasion of other part of head, initial encounter; I10 Essential (primary) hypertension; F09 Unspecified mental disorder due to known physiological condition; Z91.5 Personal history of self-harm; E66.01 Morbid (severe) obesity due to excess calories; E78.5 Hyperlipidemia, unspecified; F17.200 Nicotine dependence, unspecified, uncomplicated; F79 Unspecified intellectual disabilities; W18.39XA Other fall on same level, initial encounter; M25.562 Pain in left knee; M54.9 Dorsalgia, unspecified; R26.2 Difficulty in walking, not elsewhere classified; F39 Unspecified mood [affective] disorder; H49.9 Unspecified paralytic strabismus; Z20.822 Contact with and (suspected) exposure to COVID-19; H55.00 Unspecified nystagmus; F25.9 Schizoaffective disorder, unspecified; Z78.1 Physical restraint status; Z79.899 Other long term (current) drug therapy; Z81.3 Family history of other psychoactive substance abuse and dependence; Z83.3 Family history of diabetes mellitus; Z86.69 Personal history of other diseases of the nervous system and sense organs; Z98.2 Presence of cerebrospinal fluid drainage device; Z88.5 Allergy status to narcotic agent; Z88.0 Allergy status to penicillin; Z91.041 Radiographic dye allergy status; Z90.49 Acquired absence of other specified parts of digestive tract; Z91.81 History of falling; Y93.89 Activity, other specified; Y92.89 Other specified places as the place of occurrence of the external cause; Y99.8 Other external cause status; Z91.030 Bee allergy status; Z91.013 Allergy to seafood; Z88.2 Allergy status to sulfonamides
CPT/HCPCS: 36415; 51702; 70450; 70486; 70551; 74176; 76705; 80048; 80053; 80164; 80307; 81001; 81025; 82150; 83690; 83735; 85025; 85049; 87070; 87081; 87086; 87426; 87880; 95819; 96374; 96375; 97110; 97116; 97163; 97530; A4565; C9113; G0378; J2405; Q0162